=== PATIENT | female | born 1950 | race Caucasian/White ===

== ENCOUNTER 2016-11-03 06:40 | Emergency (ER) | payer BC | END 2016-11-03 08:04 | disposition home or self-care (01) | LOC: ER1 06:40 | DX: I86.8 Varicose veins of other specified sites (principal) | CPT/HCPCS: 12001; 99283 ==

== ENCOUNTER 2016-11-14 09:14 | Inpatient (IN) | payer BC ==
[~2016-11-14] VITALS: Ht 152.4 cm; Wt 113.4 kg
[2016-11-14 11:01] LABS: HEMOGLOBIN 13.4 gm/dl (12.3-15.3); RED BLOOD COUNT 4.55 M/UL (4.00-5.10); WHITE BLOOD COUNT 22.7 K/UL (4.5-11.0)
[2016-11-14] MEDS ORDERED: CATAPRES0.2 MG PO (18:22)
[2016-11-14] MEDS ORDERED: VITAMIN D50000 UNIT PO (18:22)
[2016-11-14] MEDS ORDERED: IBUPROFEN800 MG PO (18:23)
[2016-11-14] MEDS ORDERED: HYZAAR 100-12.1 EACH PO (18:24)
[2016-11-15 07:10] LABS: RED BLOOD COUNT 3.95 M/UL (4.00-5.10); WHITE BLOOD COUNT 15.8 K/UL (4.5-11.0)
[2016-11-15 07:11] LABS: HEMOGLOBIN 11.1 gm/dl (12.3-15.3)
[2016-11-16 05:02] LABS: HEMOGLOBIN 10.1 gm/dl (12.3-15.3); RED BLOOD COUNT 3.56 M/UL (4.00-5.10)
[2016-11-16 05:04] LABS: WHITE BLOOD COUNT 20.5 K/UL (4.5-11.0)
[2016-11-17 04:12] LABS: HEMOGLOBIN 10.1 gm/dl (12.3-15.3); RED BLOOD COUNT 3.48 M/UL (4.00-5.10); WHITE BLOOD COUNT 27.6 K/UL (4.5-11.0)
[2016-11-18 04:25] LABS: HEMOGLOBIN 8.7 gm/dl (12.3-15.3)
[2016-11-18 04:27] LABS: RED BLOOD COUNT 3.1 M/UL (4.00-5.10); WHITE BLOOD COUNT 38.4 K/UL (4.5-11.0)
[2016-11-19 05:15] LABS: HEMOGLOBIN 8.8 gm/dl (12.3-15.3); RED BLOOD COUNT 3.1 M/UL (4.00-5.10)
[2016-11-19 05:28] LABS: BUN/CREATININE RATIO 44 (0-10)
[2016-11-19 05:30] LABS: WHITE BLOOD COUNT 38.9 K/UL (4.5-11.0)
--- NOTE | 2016-11-19 19:37 | NUR ---
IN PTS ROOM AT APPROX 1745, FLUSHED CENTRAL LINE, STARTED VENOFER, TURNED TO PREPARE NEXT MEDS, LOOKED BACK AT MONITOR PTS O2 58 ASKED IF PT OK WHILE PUTTING ON PTS NASAL CANNULA, RT CAME IN ROOM, STAFF ASSIST CALLED, O2 CONTINUED TO DROP, NONREBREATHER, BEGAN CPR, MD AT BEDSIDE, ANESTETHSIA AT BEDSIDE, MULTIPLE ICU AND PCU NURSES AND RESPIRATORY IN ROOM. COMPRESSIONS STOPPED, O2 RECOVERED, MASK REMOVED, NC @ 3 L PT O2 98% PT STATES SHE THINKS SHE PASSED OUT BUT WASN'T SURE, ATTENDING MD NOTIFIED, PT MOVED TO ICU
[2016-11-20 04:12] LABS: BUN/CREATININE RATIO 48 (0-10)
[2016-11-21 05:24] LABS: HEMOGLOBIN 8.5 gm/dl (12.3-15.3); RED BLOOD COUNT 3.03 M/UL (4.00-5.10)
[2016-11-21 05:25] LABS: WHITE BLOOD COUNT 38.4 K/UL (4.5-11.0)
[2016-11-21 05:39] LABS: BUN/CREATININE RATIO 31 (0-10)
[2016-11-22 06:49] LABS: BUN/CREATININE RATIO 33 (0-10)
[2016-11-22 07:11] LABS: RED BLOOD COUNT 2.83 M/UL (4.00-5.10)
[2016-11-23 05:50] LABS: BUN/CREATININE RATIO 30 (0-10)
[2016-11-23 05:58] LABS: HEMOGLOBIN 7.8 gm/dl (12.3-15.3); RED BLOOD COUNT 2.71 M/UL (4.00-5.10)
[2016-11-23 06:02] LABS: WHITE BLOOD COUNT 30.7 K/UL (4.5-11.0)
[2016-11-24 05:13] LABS: HEMOGLOBIN 7.8 gm/dl (12.3-15.3); RED BLOOD COUNT 2.82 M/UL (4.00-5.10); WHITE BLOOD COUNT 25.7 K/UL (4.5-11.0)
[2016-11-24 05:28] LABS: BUN/CREATININE RATIO 28 (0-10)
[2016-11-24 13:10] LABS: WHITE BLOOD COUNT 33.8 K/UL (4.5-11.0)
[2016-11-25 04:43] LABS: HEMOGLOBIN 7.6 gm/dl (12.3-15.3)
[2016-11-25 05:04] LABS: BUN/CREATININE RATIO 23 (0-10)
[2016-11-26 05:36] LABS: HEMOGLOBIN 7.3 gm/dl (12.3-15.3); RED BLOOD COUNT 2.63 M/UL (4.00-5.10)
[2016-11-26 05:40] LABS: WHITE BLOOD COUNT 18.9 K/UL (4.5-11.0)
[2016-11-26 05:50] LABS: BUN/CREATININE RATIO 25 (0-10)
== END 2016-11-26 15:00 | disposition other institution (70) | DRG 853 ==
LOC: ER1 09:14 → PROG CARE 13:17 → MED SURG 4 13:17 → ZEROF 13:17 → M/S 16:31 → PROG CARE 11-15 13:24 → CCU 11-19 18:45 → MED SURG 4 11-21 20:33
PROVIDERS: Emergency Medicine; Internal Medicine; Legal Medicine; Surgery; ADMIT Internal Medicine
PROC: 0J980ZZ Drainage of Abdomen Subcutaneous Tissue and Fascia, Open Approach (ICD-10-PCS; principal; 2016-11-14 13:00)
PROC: 0J9C0ZZ Drainage of Pelvic Region Subcutaneous Tissue and Fascia, Open Approach (ICD-10-PCS; principal; 2016-11-14 13:00)
PROC: 0J9B0ZZ Drainage of Perineum Subcutaneous Tissue and Fascia, Open Approach (ICD-10-PCS; 2016-11-15)
PROC: 0J9L0ZZ Drainage of Right Upper Leg Subcutaneous Tissue and Fascia, Open Approach (ICD-10-PCS; 2016-11-15)
PROC: 05HM33Z Insertion of Infusion Device into Right Internal Jugular Vein, Percutaneous Approach (ICD-10-PCS; 2016-11-16)
PROC: B543ZZA Ultrasonography of Right Jugular Veins, Guidance (ICD-10-PCS; 2016-11-16)
PROC: 0JBC0ZZ Excision of Pelvic Region Subcutaneous Tissue and Fascia, Open Approach (ICD-10-PCS; 2016-11-16)
PROC: 0HB7XZZ Excision of Abdomen Skin, External Approach (ICD-10-PCS; 2016-11-16)
DX: A41.9 Sepsis, unspecified organism (principal); M72.6 Necrotizing fasciitis; J69.0 Pneumonitis due to inhalation of food and vomit; A48.0 Gas gangrene; L02.31 Cutaneous abscess of buttock; L03.311 Cellulitis of abdominal wall; N17.9 Acute kidney failure, unspecified; E87.2 Acidosis; Z68.42 Body mass index [BMI] 45.0-49.9, adult; R55 Syncope and collapse; R09.02 Hypoxemia; J02.9 Acute pharyngitis, unspecified; K59.00 Constipation, unspecified; I48.0 Paroxysmal atrial fibrillation; R00.2 Palpitations; E87.6 Hypokalemia; I12.9 Hypertensive chronic kidney disease with stage 1 through stage 4 chronic kidney disease, or unspecified chronic kidney disease; N18.1 Chronic kidney disease, stage 1; R73.9 Hyperglycemia, unspecified; D50.9 Iron deficiency anemia, unspecified; K80.20 Calculus of gallbladder without cholecystitis without obstruction; R10.31 Right lower quadrant pain; E66.9 Obesity, unspecified; I35.1 Nonrheumatic aortic (valve) insufficiency; G47.33 Obstructive sleep apnea (adult) (pediatric); D17.39 Benign lipomatous neoplasm of skin and subcutaneous tissue of other sites; E55.9 Vitamin D deficiency, unspecified; L91.8 Other hypertrophic disorders of the skin; Z82.49 Family history of ischemic heart disease and other diseases of the circulatory system; Z72.3 Lack of physical exercise; E83.42 Hypomagnesemia; R19.7 Diarrhea, unspecified; R12 Heartburn; R11.10 Vomiting, unspecified; Z79.899 Other long term (current) drug therapy; Z79.1 Long term (current) use of non-steroidal anti-inflammatories (NSAID); I65.21 Occlusion and stenosis of right carotid artery; J01.00 Acute maxillary sinusitis, unspecified
CPT/HCPCS: ECHO; 36415; 36600; 70450; 71010; 74000; 76705; 80048; 80053; 80061; 80202; 81001; 82009; 82150; 82550; 82728; 82803; 83036; 83540; 83605; 83690; 83735; 84100; 84466; 84484; 85014; 85018; 85025; 85027; 85045; 85379; 87040; 87070; 87086; 87205; 87210; 87390; 89055; 93005; 93306; 93880; 94640; 96365; 96375; 99285; C1751; J0295; J1650; J1720; J1756; J2185; J2270; J2405; J2543; J2710; J2765; J2930; J3010; J3370; J7030; J7050; J7070; J7120